=== PATIENT | male | born 1985 | race Caucasian/White ===

== ENCOUNTER 2018-02-27 17:55 | Emergency (ER) | payer MEDICAID ==
[~2018-02-27] VITALS: Ht 167.6 cm; Wt 72.1 kg
[2018-02-27 20:25] LABS: BASOPHILS % (AUTO) 0.4 % (0-1); EOSINOPHILS # (AUTO) 0.1 X10'3 (0-0.9); EOSINOPHILS % (AUTO) 1.3 % (0-6); HEMOGLOBIN 15.9 g/dl (14.0-17.9); LYMPHOCYTES # (AUTO) 3.7 X10'3 (1.1-4.8); LYMPHOCYTES % (AUTO) 36.1 % (21-51); MEAN CORPUSCULAR HEMOGLOBIN 31.4 PG (27.0-31.0); MEAN CORPUSCULAR HGB CONC 35.2 % (33.0-36.5); MEAN CORPUSCULAR VOLUME 88.9 FL (78-98); MEAN PLATELET VOLUME 8.2 FL (7.4-10.4); MONOCYTES # (AUTO) 0.8 X10'3 (0-0.9); MONOCYTES % (AUTO) 7.5 % (2-12); NEUTROPHILS # (AUTO) 5.6 X10'3 (1.8-7.7); NEUTROPHILS % (AUTO) 54.7 % (42-75); PLATELET COUNT 258 X10'3 (140-440); RED BLOOD COUNT 5.06 X10'6 (4.70-6.10); RED CELL DISTRIBUTION WIDTH 12.6 % (11.5-14.5); WHITE BLOOD COUNT 10.2 X10'3 (4.5-11.0)
[2018-02-27 20:31] LABS: INR 1.3 INR; PROTHROMBIN TIME 12.9 SECONDS (9.0-12.0)
[2018-02-27 20:38] LABS: ALANINE AMINOTRANSFERASE 26 U/L (12-78); ALBUMIN 4.4 G/DL (3.4-5.0); ALBUMIN/GLOBULIN RATIO 1.6 (1.1-1.5); ALKALINE PHOSPHATASE 81 IU/L (46-116); ANION GAP 13 (8-16); ASPARTATE AMINO TRANSFERASE 19 U/L (10-37); BILIRUBIN,TOTAL 2.5 MG/DL (0.1-1.0); BLOOD UREA NITROGEN 15 MG/DL (7-18); BUN/CREATININE RATIO 14.9 (5.4-32.0); CALCIUM 9.4 MG/DL (8.5-10.1); CHLORIDE 99 MMOL/L (99-107); CREATININE 1.01 MG/DL (0.60-1.10); GLUCOSE 97 MG/DL (70-104); SODIUM 141 MMOL/L (135-145); TOTAL CARBON DIOXIDE 29.2 MMOL/L (24-32); TOTAL PROTEIN 7.1 G/DL (6.4-8.2); eGFR 87 ML/MIN
[2018-02-27] MEDS ORDERED: normal saline 1000ML IV soln IVB ONE (21:20)
[2018-02-27] MEDS ORDERED: diphenhydrAMINE 50 mg/ml inj IV ONE (21:20)
[2018-02-27] MEDS ORDERED: ondansetron/PF 4mg/2ml inj IV ONE (21:20)
[2018-02-27] MEDS ORDERED: metoclopramide 5 mg/ml inj IV ONE (21:20)
[2018-02-27] MEDS ORDERED: potassium Cl 20 mEq SR tablet PO ONE (21:20)
[2018-02-27] MEDS ORDERED: ONDA8TAB6 PO (21:21)
[2018-02-27] MEDS ORDERED: LIDOcaine Viscous 15ml cup PO ONE (22:05)
[2018-02-27] MEDS ORDERED: mag hydrox/Alum hydrox/simeth 30ml oral suspension PO ONE (22:05)
[2018-02-27 22:12] LABS: CLARITY,URINE CLEAR (Clear); COLOR,URINE YELLOW (Yellow); GLUCOSE, URINE NEGATIVE (Neg); KETONES,URINE 40 mg/dl (Neg); LEUKOCYTE ESTERASE ,URINE NEGATIVE (Neg); NITRITES, URINE NEGATIVE (Neg); OCCULT BLOOD,URINE NEGATIVE (Neg); PROTEIN,URINE TRACE mg/dl (Neg)
[2018-02-27] MEDS ORDERED: proCHLORperazine 10 MG/2 ml inj IV ONE (22:20)
[2018-02-27 22:22] LABS: UA COLLECTION TYPE CLN CATCH MIDSTREAM
[2018-02-27 22:23] LABS: BACTERIA,URINE FEW /HPF (Neg); MUCUS STRANDS MODERATE /LPF (Neg); RBC,URINE 0-2 /HPF (0-2); SQUAMOUS EPITHELIAL CELL,UR FEW /LPF (FEW); WBC,URINE 0-4 /HPF (0-4)
[2018-02-28 00:38] VITALS: BP 138/78
[2018-02-28] MEDS ORDERED: ONDA8TAB9 PO (10:49)
[2018-02-28] MEDS ORDERED: PROC-8 PEG (11:03)
[2018-02-28] MEDS ORDERED: PROM25SU46 RC (13:08)
== END 2018-02-28 00:41 | disposition home or self-care (01) ==
LOC: ER 17:56
DX: R11.2 Nausea with vomiting, unspecified (principal); R10.84 Generalized abdominal pain; R19.7 Diarrhea, unspecified; F17.200 Nicotine dependence, unspecified, uncomplicated; F12.10 Cannabis abuse, uncomplicated; Z90.49 Acquired absence of other specified parts of digestive tract
CPT/HCPCS: 36415; 80053; 81001; 85025; 85610; 96361; 96374; 96375; 99284; J0780; J1200; J2765; J7030

== ENCOUNTER 2018-02-28 08:39 | Emergency (ER) | payer MEDICAID ==
[~2018-02-28] VITALS: Ht 167.6 cm; Wt 66.8 kg
[~2018-02-28 08:39] MED LIST: ONDA8TAB6 PO
[2018-02-28] MEDS ORDERED: sucralfate 1gm/10ml UD suspension PO STA (09:00)
[2018-02-28] MEDS ORDERED: ondansetron 4mg rapidly disintigrating tab PO ONE (09:00)
[2018-02-28] MEDS ORDERED: LIDOcaine Viscous 15ml cup PO ONE (09:00)
[2018-02-28] MEDS ORDERED: normal saline 1000ML IV soln IVB ONE (09:00)
[2018-02-28] MEDS ORDERED: MORPHINE 2MG in 2ml NS syringe IV PRN (09:00)
[2018-02-28] MEDS ORDERED: mag hydrox/Alum hydrox/simeth 30ml oral suspension PO ONE (09:00)
[2018-02-28] MEDS ORDERED: LORazepam 2 mg/ml vial IV ONE (09:10)
[2018-02-28] MEDS ORDERED: haloperidol lactate 5mg/ml inj IM ONE (09:10)
[2018-02-28 09:21] LABS: BASOPHILS % (AUTO) 0.4 % (0-1); EOSINOPHILS # (AUTO) 0.1 X10'3 (0-0.9); EOSINOPHILS % (AUTO) 1.3 % (0-6); HEMATOCRIT 47.1 % (42.0-52.0); HEMOGLOBIN 16.1 g/dl (14.0-17.9); LYMPHOCYTES # (AUTO) 2.1 X10'3 (1.1-4.8); LYMPHOCYTES % (AUTO) 18.8 % (21-51); MEAN CORPUSCULAR HEMOGLOBIN 30.9 PG (27.0-31.0); MEAN CORPUSCULAR HGB CONC 34.1 % (33.0-36.5); MEAN CORPUSCULAR VOLUME 90.6 FL (78-98); MEAN PLATELET VOLUME 8.2 FL (7.4-10.4); MONOCYTES # (AUTO) 0.6 X10'3 (0-0.9); MONOCYTES % (AUTO) 5.1 % (2-12); NEUTROPHILS # (AUTO) 8.3 X10'3 (1.8-7.7); NEUTROPHILS % (AUTO) 74.4 % (42-75); PLATELET COUNT 268 X10'3 (140-440); RED BLOOD COUNT 5.19 X10'6 (4.70-6.10); RED CELL DISTRIBUTION WIDTH 12.5 % (11.5-14.5); WHITE BLOOD COUNT 11.2 X10'3 (4.5-11.0)
[2018-02-28 09:30] LABS: INR 1.2 INR; PROTHROMBIN TIME 12.8 SECONDS (9.0-12.0)
[2018-02-28 09:36] LABS: ALANINE AMINOTRANSFERASE 23 U/L (12-78); ALBUMIN 4.5 G/DL (3.4-5.0); ALBUMIN/GLOBULIN RATIO 1.7 (1.1-1.5); ALKALINE PHOSPHATASE 81 IU/L (46-116); AMYLASE 65 U/L (25-115); ANION GAP 13 (8-16); ASPARTATE AMINO TRANSFERASE 17 U/L (10-37); BILIRUBIN,TOTAL 2.7 MG/DL (0.1-1.0); BLOOD UREA NITROGEN 13 MG/DL (7-18); BUN/CREATININE RATIO 12.6 (5.4-32.0); CALCIUM 9.2 MG/DL (8.5-10.1); CHLORIDE 101 MMOL/L (99-107); CREATININE 1.03 MG/DL (0.60-1.10); GLUCOSE 115 MG/DL (70-104); LIPASE 65 U/L (73-393); POTASSIUM 3.4 MMOL/L (3.5-5.1); SODIUM 140 MMOL/L (135-145); TOTAL CARBON DIOXIDE 26.3 MMOL/L (24-32); TOTAL PROTEIN 7.1 G/DL (6.4-8.2); eGFR 85 ML/MIN
[2018-02-28 10:45] VITALS: BP 128/78
[2018-02-28] MEDS ORDERED: ONDA8TAB9 PO (10:49)
[2018-02-28] MEDS ORDERED: PROC-8 PEG (11:03)
[2018-02-28] MEDS ORDERED: PROM25SU46 RC (13:08)
== END 2018-02-28 11:13 | disposition home or self-care (01) ==
LOC: ER 08:40
DX: G43.A0 Cyclical vomiting, in migraine, not intractable (principal); F12.10 Cannabis abuse, uncomplicated; Z90.49 Acquired absence of other specified parts of digestive tract
CPT/HCPCS: 36415; 80053; 82150; 83690; 83880; 85025; 85610; 96361; 96372; 96374; 99284; J1630; J2060; J7030

== ENCOUNTER 2018-02-28 11:36 | Emergency (ER) | payer MEDICAID ==
[~2018-02-28] VITALS: Ht 5535.5 cm; Wt 78.0 kg
[~2018-02-28 11:36] MED LIST changes: +ONDA8TAB9 PO; +PROC-8 PEG
[2018-02-28] MEDS ORDERED: PROM25SU46 RC (13:08)
[2018-02-28 13:13] VITALS: BP 143/75
== END 2018-02-28 13:15 | disposition home or self-care (01) ==
LOC: ER 11:37
DX: G43.A0 Cyclical vomiting, in migraine, not intractable (principal); F12.10 Cannabis abuse, uncomplicated; Z90.49 Acquired absence of other specified parts of digestive tract
CPT/HCPCS: 99283